=== PATIENT | male | born 1955 | race Caucasian/White ===

== ENCOUNTER 2019-03-03 11:05 | Outpatient (CLI) | payer BC ==
--- NOTE | 2019-03-04 10:47 | XRAY Report ---
Reason: CLAVICLE PAIN Procedure Date: 03/03/2019 Accession Number: [id number] / [id number] Procedure: XR - Shoulder 2 View LT CPT Code: FULL RESULT: EXAM: LEFT SHOULDER RADIOGRAPHY EXAM DATE: 03/03/2019 11:40 AM. CLINICAL HISTORY: Clavicle pain. Pain increased over past 5 days. COMPARISON: None. TECHNIQUE: 2 views. FINDINGS: Bones: No acute fracture or bony lesion. Degenerative spurring. Type I/II acromion. Joints: Normal alignment. Moderate left acromioclavicular and mild to moderate left glenohumeral joint space narrowing. Soft tissues: The visualized hemithorax is unremarkable. No soft tissue swelling. IMPRESSION: 1. No acute osseous abnormalities. 2. Degenerative changes of the left shoulder. [facility]
--- NOTE | 2019-03-04 10:48 | XRAY Report ---
Reason: CLAVICLE PAIN Procedure Date: 03/03/2019 Accession Number: [id number] / [id number] Procedure: XR - Clavicle LT CPT Code: FULL RESULT: EXAM: LEFT CLAVICLE RADIOGRAPHY EXAM DATE: 03/03/2019 11:40 AM. CLINICAL HISTORY: Clavicle pain. Pain increased over past 5 days. COMPARISON: None. TECHNIQUE: 2 views. FINDINGS: Bones: No acute fracture or bony lesion. Mild degenerative spurring. Well corticated calcifications along the margins of the left acromioclavicular joint. Joints: Normal alignment. Degenerative changes of the left acromioclavicular joint. No dislocation. Soft Tissues: Normal. No soft tissue swelling. IMPRESSION: 1. No acute osseous abnormalities. Normal alignment. 2. Degenerative changes of the left acromioclavicular joint. [facility]
== END 2019-03-03 11:06 | disposition home or self-care (01) ==
LOC: DI 11:05
PROVIDERS: ATTEND Internal Medicine
DX: M19.012 Primary osteoarthritis, left shoulder (principal)